=== PATIENT | male | born 1950 ===

== ENCOUNTER 2018-10-14 12:11 | Outpatient (CLI) | payer OTHER | END 2018-10-14 12:26 | disposition home or self-care (01) | LOC: EKG 12:11 | DX: I10 Essential (primary) hypertension (principal) ==

== ENCOUNTER 2018-10-21 11:15 | Inpatient (IN) | payer OTHER ==
[~2018-10-21] VITALS: Ht 175.3 cm; Wt 88.5 kg
[2018-10-21] MEDS ORDERED: ENALAPRIL MALEA10 MG PO (15:26)
== END 2018-11-15 14:18 | DRG 470 ==
LOC: EDUNIT# 11:15 → SURH 10-27 11:15 → O/R 11-10 08:00 → SURH 11-10 08:00
PROVIDERS: ADMIT Orthopaedic Surgery
PROC: 0SRD0J9 Replacement of Left Knee Joint with Synthetic Substitute, Cemented, Open Approach (ICD-10-PCS; principal; 2018-11-10 12:30)
DX: M17.12 Unilateral primary osteoarthritis, left knee (principal); M85.462 Solitary bone cyst, left tibia and fibula; I10 Essential (primary) hypertension